=== PATIENT | male | born 1955 | race Caucasian/White ===

== ENCOUNTER → 2016-10-05 | Day surgery (SDC) | payer OTHER ==
[~2016-10-05] VITALS: Ht 170.2 cm; Wt 79.4 kg
[~2016-10-05] MED LIST: 0.9% Sodium Chloride 1,000 ML IV SCH; Sodium Chloride LOK Flush 10 mL Syringe IV PRN; fentaNYL-PF 50 mCg/mL 2 mL Inj IVPUSH PRN
[2016-10-05 13:05] VITALS: BP 130/85; PULSE 69; RESP 14; O2SAT 97
--- NOTE | 2016-10-05 13:42 | PCM.ENDEGD ---
EGD Date of Service: Oct 05, 2016 Physician Henry Lara MD Pre Procedure Diagnosis: Reflux Post Procedure Dx & Findings: Mild esophagitis. Duodenal polyp Procedure Esophagogastroduodenoscopy PROCEDURE IN DETAIL: After proper sedation, Olympus video endoscope was inserted into patient's mouth and esophagus was successfully intubated. Scope introduced esophagus. Esophagus showed normal shiny whitish mucosa consistent with squamous cell component. Z line was inflamed with redness and erosion at 38 cm from the incisors. LA grade B. Scope further events to the stomach. Stomach showed normal shiny mucosa with normal appearing rugae folds without any ulcer mass erosion. Cardia fundus body antrum pylorus were all visualized. Retroflexion was done. Stomach was easily inflated and deflatable using air. Scope further events to the distal duodenum. Duodenum revealed normal villous structures with normal appearing folds without any mass ulcer erosion. However at the first pass of the duodenum, there was a sub- mm polyp with narrow banding showing adenomatous features. This was removed completely using cold forceps. Impression Esophagitis Duodenal polyp status post complete removal Recommendation Continue PPI Follow-up with the PA in the GI clinic. Presedation Assessment Risks and Benefits Informed consent was obtained from the patient after all risks and benefits including but not limited to drug reaction, infection, pain, bleeding, perforation, as well as alternatives were discussed. Patient monitoring Continuous pulse oximetry, cardiac monitoring, blood pressure monitoring, IV access, and oxygen at 2L per nasal cannula. Periprocedural Fentanyl: Fentanyl 100mcg Incrementally Midazolam: Midazolam 4mg Incrementally Complications There were no periprocedural complications identified. Post Procedure Plan Post Procedure Recommendations 1. Restrict activities today. 2. Resume normal activities in the morning. 3. Resume medications. 4. GERD behavioral modification: - Avoid fatty, acidic, spicy, large meals - Do not lie down after meals - Do not eat or drink anything for at least 2 1/2 hours before going to bed at night - Discontinue tobacco and alcohol - Decrease or avoid caffeine - Avoid chocolate and mints - Decrease weight - Avoid aspirin and non steroidal anti-inflammatory agents (NSAID) such as Aleve, Advil, Mobic, Naproxen, Ibuprofen, etc 5. Add proton pump inhibitor. Take 30 minutes before 1st meal of the day. 6. Patient informed of normal post procedure side effects as bloating, drowsiness, blood streaking in the stool 7. If gastric biopsy reveal H.pylori, continue with appropriate treatment 8. If small bowel biopsy reveals celiac, continue with appropriate treatment 9. Please don't hesitate to call me with any questions Henry Lara MD Oct 05, 2016 13:42
--- NOTE | 2016-10-05 14:05 | PCM.ENDCOL ---
Colonoscopy Date of Service: Oct 05, 2016 Physician Henry Lara MD Pre Procedure Diagnosis: Screening personal history of polyps Post Procedure Dx & Findings: Polyp hemorrhoids diverticuli Procedure Colonoscopy PROCEDURE IN DETAIL: Prep adequate Withdrawal 12 minutes After unremarkable rectal examination the Olympus video colonoscope was inserted patient's anal canal and was advanced to cecum. Landmarks were identified including the ileocecal valve and appendiceal orifice. Scope was withdrawn systematically. Visualized colonic mucosa showed healthy shiny mucosa with normal healthy-appearing vasculature. In the transverse colon, there were 3 polyps. 2 were less than millimeters in size. These were resected completely using cold forceps. One of them was about 3 mm in size which was resected completely using cold snare. In the descending colon, was a 1 mm polyp which was removed completely using cold forceps. In the rectum there was a 5 mm polyp which was resected completely using a snare. Starting at the descending colon and into the distal sigmoid, several diverticuli noted. In the rectum retroflexion was done which showed hemorrhoids. Anal canal was inspected carefully on the way out and hemorrhoids noted. Impression Polyp 5 status post complete removal Diverticuli Hemorrhoids Personal history of colon polyp Recommendation Repeat colonoscopy 3 years Diverticular diet Presedation Assessment Risks and Benefits Informed consent was obtained from the patient after all risks and benefits including but not limited to drug reaction, infection, pain, bleeding, perforation, as well as alternatives were discussed. Patient monitoring Continuous pulse oximetry, cardiac monitoring, blood pressure monitoring, IV access, and oxygen at 2L per nasal cannula. Periprocedural Fentanyl: Fentanyl 50mcg Incrementally Midazolam: Midazolam 2mg Incrementally Complications There were no periprocedural complications identified. Post Procedure Plan Post Procedure Recommendations 1. Restrict activities today. 2. Resume normal activities in the morning. 3. Resume medications. 4. Patient informed of normal post procedure side effects as bloating, drowsiness, blood streaking in the stool. 5. average risk CRCS. If colon polyps come back as: -Hyperplastic- can repeat colonoscopy in 10 years -Tubular adenoma- repeat colonoscopy in 5 years -Tubulovillous/villous adenoma- repeat colonoscopy in 3 years -If any dysplasia- return to clinic as soon as possible 6. Please don't hesitate to call me with any questions. Henry Lara MD Oct 05, 2016 14:05
[2016-10-05 14:06] VITALS: BP 134/76; PULSE 63; RESP 16; O2SAT 97
[2016-10-05 14:20] VITALS: BP 134/68; PULSE 66; RESP 16; O2SAT 98
--- NOTE | 2016-10-07 14:01 | PATH ---
SURGICAL PATHOLOGY Attending Physician:Henry Lara M.D. CASE STATUS: Signed Out PATIENT NAME: DEBI SILVESTRE PID: [id number] : 1955 DATE COLLECTED:10/05/2016 00:00 SPECIMEN: 1: Esophagus, Biopsy 2: Duodenum, Biopsy 3: Colon, Biopsy 4: Colon, Biopsy 5: Rectum, Biopsy CLINICAL HISTORY: 1). DISTAL ESOPHAGUS BIOPSY 2). DUODENUM POLYP 3). TRANSVERSE COLON POLYPS X2 4). DESCENDING COLON POLYP X1 5). RECTAL POLYP X1 FINAL DIAGNOSIS: 1.DISTAL ESOPHAGUS BIOPSY: SQUAMOCOLUMNAR MUCOSA WITH REFLUX-RELATED CHANGES. Negative for intestinal/' s metaplasia. Negative for dysplasia and malignancy. 2.DUODENUM, POLYP: DUODENAL MUCOSA WITH GASTRIC METAPLASIA. Negative for dysplasia and malignancy. 3.TRANSVERSE COLON POLYPS: TUBULAR ADENOMAS, 2. 4.DESCENDING COLON POLYP: TUBULAR ADENOMA. 5.RECTAL POLYP: TUBULAR ADENOMA. ICD10 CODE D12.3 D12.4 D12.8 GROSS DESCRIPTION: The specimen is received in five formalin filled containers labeled with the patient's name. 1). The specimen is sublabeled "distal esophagus" are 2 fragments of aguirre, soft tissue which range in size from 0.3 x 0.3 x 0.2 CM. The specimen is entirely submitted in cassette 1A. 2). The specimen is sublabeled "duodenum polyp" and consists of a 0.2 x 0.2 x 0.2 CM portion of tissue which is entirely submitted in cassette 2A. 3). The specimen is sublabeled "transverse colon polyps" and consists of multiple portions of tissue which aggregate to 0.4 x 0.4 x 0.2 CM. The specimen is entirely submitted in cassette 3A. 4). The specimen is sublabeled "descending colon polyp" and consists of a 0.3 x 0.3 x 0.3 CM portion of tissue which is entirely submitted in cassette 4A. 5). The specimen is sublabeled "rectal polyp" and consists of a 0.4 x 0.4 x 0.4 CM portion of tissue. The specimen is entirely submitted in cassette 5A. 10/06/2016 DAC MICRO DESCRIPTION: See diagnosis. ICD-9 CODES: CPT CODES: 1: 30586 2: 55994 3: 70529 4: 17757 5: 14083 Electronically Signed Out Kayla Marin MD [facility] [address], [place] [address] Technical component performed at [facility], [address], [place], [address]
== END | disposition home or self-care (01) ==
LOC: END 00:34
PROVIDERS: ATTEND Internal Medicine
DX: Z12.11 Encounter for screening for malignant neoplasm of colon (principal); Z86.010 Personal history of colon polyps; D12.4 Benign neoplasm of descending colon; D12.3 Benign neoplasm of transverse colon; D12.8 Benign neoplasm of rectum; K57.30 Diverticulosis of large intestine without perforation or abscess without bleeding; K64.9 Unspecified hemorrhoids; K31.7 Polyp of stomach and duodenum; K20.9 Esophagitis, unspecified
CPT/HCPCS: 43239; 45380; 45385; 99153; G0500; J2250; J3010; J7030

== ENCOUNTER 2016-11-24 05:50 | Day surgery (SDC) | payer OTHER ==
[~2016-11-24] VITALS: Ht 170.2 cm; Wt 80.0 kg
[2016-11-24] VITALS (7 sets, daily range): BP systolic 120–144; BP diastolic 70–90; PULSE 62–72; RESP 10–18; O2SAT 97–99
[2016-11-24] MEDS ORDERED: Propofol 10,000 mCg/mL 20 mL Inj ONE (05:51)
[2016-11-24] MEDS ORDERED: EPHEDrine/NS 5 mg/mL 5 mL Syringe ONE (05:51)
[2016-11-24] MEDS ORDERED: Ondansetron 2 mg/mL 2 mL Inj ONE (05:51)
[2016-11-24] MEDS ORDERED: fentaNYL-PF 50 mCg/mL 2 mL Inj ONE (05:51)
[2016-11-24] MEDS ORDERED: CeFAZolin Inj 2 GM in IV Premix 1 EACH IV ONE (06:00)
[2016-11-24] MEDS: Lactated Ringer's 1,000 ML IV SCH ×2 (06:02→09:00)
[2016-11-24] MEDS ORDERED: Lactated Ringer's 1,000 ML IV SCH (07:57)
[2016-11-24] MEDS ORDERED: Lactated Ringer's 500 ML IV PRN (07:57)
--- NOTE | 2016-11-24 07:57 | PCM.HPANE ---
Patient Data Surgeon Admitting Provider: Attending Provider:Gage Sauceda MD Primary Care Physician:Sameer Jean DO Other Provider:Georgia Hollidayingham Anesthesia Reason for Visit Right Inguinal Hernia Ht/WT & BMI Height (Feet): 5 Height (Inches): 7.00 Weight (Kilograms): 80.0 Body Mass Index 27.00 Allergies Coded Allergies: codeine (Verified Allergy, Intermediate, ITCHY, 11/19/16) Past Anesthesia History Anesthesia History: Denies:: Abnormal Airway, Anesthesia Reactions, Difficult Intubation, Fam Anesthesia Reaction, Fam Malignant Hypertherm, Malignant Hyperthermia Diabetes History Hx Diabetes?: No MRSA MRSA: No Medications Home Meds Incl Beta Taylor: No No Active Prescriptions or Reported Meds History History of ENT Problems?: No HEENT History: Denies:: Abnormal Airway Difficult Intubation Hearing Problem Denture Type: None Teeth Condition: Within Normal Limits Hx of Heart Problems?: No Cardiovascular History: Denies:: AICD Abdominal Aortic Aneurism Atrial Fibrillation Cardiac Surgery Chest Pain Congestive Heart Failure Coronary Artery Disease Edema Heart Murmur Hypertension Irregular Heartbeat Pacemaker Peripheral Vascular Rheumatic Fever Thrombophlebitis Valvular Heart Disease Hx of Respiratory Problem?: No Respiratory History: Denies:: Asthma COPD Chest Surgery Cough Dyspnea Emphysema Hemoptysis Oxygen Administration Pneumonia Pulmonary Embolism Tuberculosis Use of C-PAP Machine Use of Inhalers / NEBS Hx Neurologic Problems?: No Neurological History: Denies:: CVA Hx of GI Problems?: Yes Gastrointestinal History: Denies:: Cirrhosis Diverticulitis Gall Bladder Disease Gastroesphageal Reflux Gastrointestinal Bleeding Heartburn Hepatitis Hiatal Hernia Liver Disease Rectal Bleeding Other GI Pertinent History: COLON POLYPS HEMERRHOIDS Hx of Problems?: Yes Genitourinary History: Positive for:: Kidney Stones Urinary Tract Infection (NEPHROLITHIASIS) Male Hx: Denies:: Prostate Problems Scrotal Mass Testicular Surgery Skin History: Denies:: History Skin Disorders? Hx Musculoskeletal Problems?: No Musculoskeletal History: Denies:: Back Injury Degenerative Joint Fibromyalgia Joint Replacement Musculoskeletal Trauma Myasthenia Gravis Osteoarthritis Rheumatoid Arthritis Systemic Lupus Hx of Psycho/Social Problems?: No Hx Surgeries?: Yes (OPEN KNEE SURGERY) Hx Any Other Health Problems?: No Hx Diabetes: No Hx Alcohol Use: NoHx Substance Use: No Stop/Bang S-Snoring: Do You Snore Loudly: No T-Tired: feel tired, fatigued: No O-Obsered: Observed not breath: No P-Blood Pressure: treated: No B- Body Mass Index > 35 kg/m2: No A- Age over 50: Yes N- Neck Large Circumference: No G- Gender Male: Yes LILIAN Total Score: 2 Risk Assessment Category Category 1A: Patient has history of documented sleep apnea, and HAS NOT received any narcotic, sedative or anesthesia administration during this stay. Category 1B: Patient has history of documented sleep apnea, and HAS received any narcotic , sedative or anesthesia administration during this stay Category 2: Patient has SUSPECTED Obstructive Sleep Apnea, and HAS received any narcotic , sedative or anesthesia administration during this stay. Category 3: Patient has SUSPECTED Obstructive Sleep Apnea and HAS NOT received narcotic, sedative or anesthesia administration during this stay. Category 4: Outpatient in Procedural Areas with known sleep apnea or who screen positive for High Risk via the STOP/BANG questionnaire. Exam Exam Vital Signs Vital Signs Date Time Temp Pulse Resp B/P Pulse Ox O2 Delivery O2 Flow Rate FiO2 11/24/16 06:02 36.4 68 14 144/84 97 Room Air General Appearance: Alert, Oriented X3, Cooperative, No Acute Distress HEENT/AIRWAY: MP 2 Lungs: Clear to Auscultation Heart: Exam Unremarkable Meds/Labs/Diagnostics Admission Meds Current Medications Lactated Ringer's (Lr) 1,000 ml @ 120 mls/hr [id number] IV Last administered on t 06:02; Start 11/24/16 at 05:00; Stop 11/24/16 at 13:19 Plan Impression Patient chart reviewed, patient interviewed and anesthestic plan with risks, benefits, and alternatives discussed, and informed consent obtained. ASA Physical Status: ASA1 Normal Healthy Anesthetic Plan: GA Bene/Risks/Altern/Consents: Yes HP Complete Prior to Induction: Yes Tab Collazo MD November 24, 2016 07:57
[2016-11-24] MEDS ORDERED: Phenylephrine 10,000 mCg/mL Inj IVPUSH PRN (08:00)
[2016-11-24] MEDS ORDERED: Dexamethasone 4 mg/mL Inj IVPUSH PRN (08:00)
[2016-11-24] MEDS ORDERED: EPHEDrine Sulfate 50 mg/mL Inj IVPUSH PRN (08:00)
[2016-11-24] MEDS ORDERED: MetoCLOpramide 5 mg/mL 2 mL Inj IVPUSH PRN (08:00)
[2016-11-24] MEDS ORDERED: HYDROmorphone 1 mg/mL Inj IVPUSH PRN (08:00)
[2016-11-24] MEDS ORDERED: Ondansetron 2 mg/mL 2 mL Inj IVPUSH PRN (08:00)
[2016-11-24] MEDS ORDERED: Bupivacaine-MPF 0.25%/EPI 30 mL Inj INJ ONE (08:35)
[2016-11-24] MEDS ORDERED: HYDROcodone-APAP 5-325 mg Tablet PO PRN (09:10)
--- NOTE | 2016-11-24 09:12 | PCM.DISURG ---
Surgical Discharge Instruction Date of Service November 24, 2016 Dates of Hospitalization Date of Hospital Admission Providers Admitting Physician: Primary Care Physician: Sameer Jean DO Attending Physician: Gage Sauceda MD Discharge Diagnosis Discharge Diagnosis Right inguinal hernia Diet Discharge Diet: No restrictions Activity Discharge Activity-General: Activity as pain allows, No lifting >15 pounds for 2 weeks Dressing and Incisional Care Dressing Care: Allow Steri Stripes to fall off, Remove outer dressing after 24 hrs Hygiene: May shower after (24 hours) Follow Up Plan Follow Up Plan In the general surgery [place] postop clinic in 2-3 weeks Call your provider for: Fever (over 101.5), Vomiting, Discharge @ incision, pus discharge Gage Sauceda MD November 24, 2016 09:12
--- NOTE | 2016-11-24 09:13 | PCM.ANEP1 ---
Post Anesthesia Phase 1 PACU Phase 1 Assessment Vital Signs Vital Signs Date Time Temp Pulse Resp B/P Pulse Ox O2 Delivery O2 Flow Rate FiO2 11/24/16 06:02 36.4 68 14 144/84 97 Room Air Anesthetic Administered: GA Level of Alertness: Awake, talking RIVAS's with Equal Strength: Yes Pain: No Nausea or Vomiting: No Cardiovascular Function and Hy: No Oxygen Delivery: Room Air Lungs: Clear to Auscultation Dermatome Level: Full Sensation Complications: No Tab Collazo MD November 24, 2016 09:13
--- NOTE | 2016-11-24 09:15 | PCM.SURGOP ---
Surgical Operative Report Date of Service: November 24, 2016 Pre Operative Diagnosis Right inguinal hernia Post Operative Diagnosis Indirect right inguinal hernia Procedure: Right inguinal hernia repair with mesh Surgeon and Audience Development Manager: Surgeon: Gage Sauceda MD Assistants: Sony Snyder PA-C Indication for Procedure 61-year-old man who developed right groin pressure and a slight bulge since 2015. He initially thought that he was passing a kidney stone. 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 After discussion of risks and benefits, he agreed to proceed with right inguinal hernia repair with mesh. Findings: He had an indirect right inguinal hernia with a small cord lipoma. The inguinal floor was attenuated, but intact. Procedure Details After smooth induction of general anesthesia with an LMA, the patient was placed in the supine position, and was prepped and draped in wide sterile fashion. A procedural pause was performed according to the SCOAP checklist, and all were found to be in agreement. A transverse incision was made in the skin lines in the left groin. Dissection was carried out with electrocautery through the subcutaneous tissue. The superficial inferior epigastric vein was cauterized and divided. Elizabeth's fascia was divided. The external oblique fascia was skeletonized down to the external inguinal ring. The external oblique fascia was opened sharply, taking care to avoid injury to the ilioinguinal nerve. The spermatic cord contents were encircled with a Whittier drain. The inguinal floor was inspected. It was slightly attenuated laterally, but there was no direct defect. The spermatic cord was explored. There was a small cord lipoma which was dissected free and discarded. There was a hernia sac anteromedially, which was dissected off the cord structures. It contained preperitoneal fat. It was reduced through the deep inguinal ring. A repair was then performed using the Bard 3 x 6" polypropylene mesh, which was cut to size. It was secured to the pubic tubercle , the shelving edge of the ilioinguinal ligament, the conjoined tendon. A slit was cut in the mesh to allow passage of the spermatic cord. The external oblique fascia was then closed over the mesh using a running 3-0 Vicryl suture. Elizabeth's fascia was closed with an interrupted 3-0 Vicryl suture. The skin incision was closed with a running 4-0 Monocryl subcuticular stitch. Steri- Strips and sterile dressings were applied. At the end the case all needle and sponge counts were correct 2. The patient was awakened from anesthesia without difficulty, and taken to the recovery room in satisfactory condition, having tolerated the procedure well. Complications There were no periprocedural complications identified. Surgical Specimen Removed: No Specimen sent to Pathology: Not applicable Anesthetic Plan: GA Grafts, Implants: Implants-See Implant Record Output, Estimated Blood Loss: 10 Blood Administration during bender: No Drains: None Catheters: None copies to: Sameer Jean Joshua D MD November 24, 2016 09:15
[2016-11-24] MEDS: fentaNYL-PF 50 mCg/mL 2 mL Inj IVPUSH PRN ×2 (09:21→09:29)
== END 2016-11-24 23:59 | disposition home or self-care (01) ==
LOC: SAS 05:50
PROVIDERS: ATTEND Student in an Organized Health Care Education/Training Program
DX: K40.90 Unilateral inguinal hernia, without obstruction or gangrene, not specified as recurrent (principal)
CPT/HCPCS: 49505; C1781; J0690; J3010; J7120